=== PATIENT | female | born 1970 | race African-American/Black ===

== ENCOUNTER → 2024-09-12 | Outpatient (CLI) | payer MEDICAID ==
[~2024-09-12] MED LIST: Gadoterate 20 ML VIAL IV ONE
== END ==
LOC: RAD 10:14
DX: J32.1 Chronic frontal sinusitis (principal); G40.209 Localization-related (focal) (partial) symptomatic epilepsy and epileptic syndromes with complex partial seizures, not intractable, without status epilepticus; G43.109 Migraine with aura, not intractable, without status migrainosus
CPT/HCPCS: A9575